=== PATIENT | male | born 1960 | race Caucasian/White ===

== ENCOUNTER 2016-11-01 11:17 | Inpatient (IN) | payer OTHER ==
[~2016-11-01] VITALS: Ht 175.3 cm; Wt 117.4 kg
[~2016-11-01 11:17] MED LIST: ASPIRIN EC325 MG PO; ASPIRIN325 MG PO; ATARAX,VISTARIL50 MG PO; ATORVASTATIN CA40 MG PO; FENOFIBRATE160 M1 PO; FLOMAX0.4 MG PO; FLONASE16 G1 BOTH NARES; GLUCOPHAGE1000 MG; GLUCOPHAGE1000 MG PO; HUMULIN R100 UNITS/ SC; HYDROXYZINE PAM50 MG PO; LAMISIL250 MG PO; LISINOPRIL10 MG PO; LITHIUM CARBON300 M1 PO; LITHIUM CARBON300 M2 PO; LITHIUM CARBON300 MG PO; LITHIUM CARBON600 MG PO; LITHOBID300 MG PO; LOPRESSOR25 MG PO; MECLIZINE HCL25 MG PO; METFORMIN HCL1000 M1 PO; METFORMIN HCL1000 MG PO; MOTRIN400 MG PO; NABUMETONE500 MG PO; NAPROSYN500 MG PO; NORCO 5/3251 TABLET PO; NOVOLIN N100 UNITS/ SC; NOVOLIN,HU100 UNITS1 SC; NOVOLOG PE100 UNITS/ SC; OMEPRAZOLE40 M1 PO; PERCOCET 10/1 TABLET PO; PROVENTIL HFA6.7 GM IH; RISPERDAL4 MG PO; ROBAXIN750 MG PO; TRAMADOL HCL50 MG PO; TRAZODONE HCL100 MG PO; TRICOR PO; TRICOR145 MG PO; TRILEPTAL300 MG PO; ULTRAM50 MG PO; WELLBUTRIN SR150 MG PO
[2016-11-01 13:52] LABS: EOSINOPHIL (%) 0 % (0-5); HEMATOCRIT 32.8 % (38.0-50.0); IMMATURE GRANULOCYTE (%) 0.6 % (0.0-0.7); INSTRUMENT ABS NEUTROPHIL CT 4.1 K/uL; LYMPHOCYTE COUNT 0.8 K/uL (1.0-2.8); MCH 30.2 PG (29.0-34.0); MCHC 32.6 G/DL (30.0-36.0); MCV 92.7 FL (86-99); MEAN PLAT.VOLUME 11.4 uM^3 (9.0-12.4); MONOCYTE (%) 4.8 % (3-12); MONOCYTE COUNT 0.3 K/uL (0-0.8); NEUTROPHIL (%) 78.9 % (45-76); NEUTROPHIL COUNT 4.1 K/uL (1.8-6.4); PLATELET COUNT 144 K/uL (156-360); RBC DIS.WIDTH-CV 15.4 % (11.8-14.6); RBC DIS.WIDTH-SD 52.6 % (39-53); RED BLOOD COUNT 3.54 M/uL (4.00-5.50); WHITE BLOOD COUNT 5.2 K/uL (4.1-10.2)
[2016-11-01 14:02] LABS: CHLORIDE 108 mEq/L (99-109); INTER. NORMALIZED RATIO 1.1; POTASSIUM 5.5 mEq/L (3.7-5.4); PROTHROMBIN TIME 11.1 (9.2-11.2); PTT 26.2 (25-32); SODIUM 135 mEq/L (136-147)
[2016-11-01 14:03] LABS: GLUCOSE 351 mg/dL (70-99)
[2016-11-01 14:05] LABS: ANION GAP 7 MEQ/L (2-14)
[2016-11-01 14:07] LABS: GFR ESTIMATE (CALCULATED) 42 mL/min/
[2016-11-01 14:08] LABS: UREA NITROGEN (BUN) 28 mg/dL (9-23)
[2016-11-01 14:15] LABS: TROP-I INTERPRETATION NEGATIVE; TROPONIN-I < 0.01 ng/mL (0.0-0.30)
[2016-11-01] MEDS ORDERED: HUMALOG100 UNIT/2 SC (15:45)
[2016-11-01] MEDS ORDERED: FUROSEMIDE20 MG PO (15:45)
[2016-11-01] MEDS ORDERED: TRESIBA FL200 UNIT/1 SC (15:46)
[2016-11-01 18:27] VITALS: BP 157/72
[2016-11-01 18:47] LABS: POINT-OF-CARE METER ID UU14162513
[2016-11-01 22:58] LABS: POINT-OF-CARE METER ID UU14162513
[2016-11-02] VITALS (7 sets, daily range): BP systolic 109–162; BP diastolic 58–74
[2016-11-02 08:07] LABS: POINT-OF-CARE METER ID UU14162513
[2016-11-02 08:14] LABS: ANION GAP 6 MEQ/L (2-14); CHLORIDE 107 MEQ/L (99-109); GFR ESTIMATE (CALCULATED) 51 mL/min/; GLUCOSE 295 mg/dL (70-99); POTASSIUM 5.2 MEQ/L (3.7-5.4); SAMPLE HEMOLYSIS CHECK 0; SAMPLE ICTERIC CHECK 0; SAMPLE LIPEMIA CHECK 0; SODIUM 135 MEQ/L (136-147); UREA NITROGEN (BUN) 27 mg/dL (9-23)
[2016-11-02 08:20] LABS: HEMATOCRIT 31.3 % (38.0-50.0); MCHC 33.2 G/DL (30.0-36.0); MCV 93.4 FL (86-99); MEAN PLAT.VOLUME 11.6 uM^3 (9.0-12.4); PLATELET COUNT 144 K/uL (156-360); RBC DIS.WIDTH-CV 15.5 % (11.8-14.6); RBC DIS.WIDTH-SD 53.1 % (39-53); RED BLOOD COUNT 3.35 M/uL (4.00-5.50); WHITE BLOOD COUNT 5.5 K/uL (4.1-10.2)
[2016-11-02 12:41] LABS: POINT-OF-CARE METER ID UU14162513
[2016-11-02 16:56] LABS: ADD MIUA? NO; BILIRUBIN NEGATIVE; BLOOD NEGATIVE; COLOR STRAW ((YELLOW)); GLUCOSE (STRIP) >=500; KETONES NEGATIVE; LEUKOCYTES NEGATIVE; NITRITE NEGATIVE; PROTEIN (STRIP) NEGATIVE; SPECIFIC GRAVITY 1.016 (1.000-1.030); UROBILINOGEN 0.2 MG/DL (0.2-1.0)
[2016-11-02 17:16] LABS: UR CREATININE CONCENTRATION 50.1 MG/DL
[2016-11-02 17:40] LABS: POINT-OF-CARE METER ID UU13113831
[2016-11-02 21:12] LABS: POINT-OF-CARE METER ID UU14162513
[2016-11-03 03:55] VITALS: BP 153/57
[2016-11-03 06:09] LABS: EOSINOPHIL (%) 0 % (0-5); HEMATOCRIT 30.2 % (38.0-50.0); IMMATURE GRANULOCYTE (%) 0.3 % (0.0-0.7); INSTRUMENT ABS NEUTROPHIL CT 4.8 K/uL; LYMPHOCYTE COUNT 1.1 K/uL (1.0-2.8); MCH 30.5 PG (29.0-34.0); MCHC 32.8 G/DL (30.0-36.0); MCV 92.9 FL (86-99); MONOCYTE (%) 5.8 % (3-12); MONOCYTE COUNT 0.4 K/uL (0-0.8); NEUTROPHIL (%) 75.6 % (45-76); NEUTROPHIL COUNT 4.8 K/uL (1.8-6.4); PLATELET COUNT 139 K/uL (156-360); RBC DIS.WIDTH-CV 15.5 % (11.8-14.6); RBC DIS.WIDTH-SD 53.1 % (39-53); RED BLOOD COUNT 3.25 M/uL (4.00-5.50); WHITE BLOOD COUNT 6.3 K/uL (4.1-10.2)
[2016-11-03 06:17] LABS: ANION GAP 5 MEQ/L (2-14); CHLORIDE 107 MEQ/L (99-109); GFR ESTIMATE (CALCULATED) 56 mL/min/; GLUCOSE 200 mg/dL (70-99); MAGNESIUM 1.7 mg/dl (1.3-2.7); POTASSIUM 5.1 MEQ/L (3.7-5.4); SAMPLE HEMOLYSIS CHECK 0; SAMPLE ICTERIC CHECK 0; SAMPLE LIPEMIA CHECK 0; SODIUM 134 MEQ/L (136-147); UREA NITROGEN (BUN) 26 mg/dL (9-23); URIC ACID 7.1 mg/dL (3.1-9.2)
[2016-11-03 07:45] VITALS: BP 115/56
[2016-11-03] MEDS ORDERED: ATORVASTATIN CA40 MG PO (08:53)
[2016-11-03] MEDS ORDERED: ASPIRIN EC325 MG PO (08:54)
[2016-11-03] MEDS ORDERED: HUMALOG100 UNIT/2 SC (08:56)
== END 2016-11-03 12:20 | disposition home or self-care (01) | DRG 69 ==
LOC: EME 11:17 → EDOF 15:06 → 5WEST 15:06
PROVIDERS: Emergency Medicine; Hospitalist; Internal Medicine Nephrology
DX: G45.8 Other transient cerebral ischemic attacks and related syndromes (principal); N17.9 Acute kidney failure, unspecified; E11.22 Type 2 diabetes mellitus with diabetic chronic kidney disease; N18.3 Chronic kidney disease, stage 3 (moderate); E11.65 Type 2 diabetes mellitus with hyperglycemia; R47.81 Slurred speech; F31.9 Bipolar disorder, unspecified; I12.9 Hypertensive chronic kidney disease with stage 1 through stage 4 chronic kidney disease, or unspecified chronic kidney disease; E78.5 Hyperlipidemia, unspecified; Z79.4 Long term (current) use of insulin; J45.909 Unspecified asthma, uncomplicated; D64.9 Anemia, unspecified; E87.5 Hyperkalemia; Z86.73 Personal history of transient ischemic attack (TIA), and cerebral infarction without residual deficits; E66.9 Obesity, unspecified; Z68.38 Body mass index [BMI] 38.0-38.9, adult; G56.03 Carpal tunnel syndrome, bilateral upper limbs; R42 Dizziness and giddiness; R11.2 Nausea with vomiting, unspecified; R26.81 Unsteadiness on feet; G47.33 Obstructive sleep apnea (adult) (pediatric); G89.29 Other chronic pain; M54.5 Low back pain; Z79.84 Long term (current) use of oral hypoglycemic drugs; T39.395A Adverse effect of other nonsteroidal anti-inflammatory drugs [NSAID], initial encounter; T50.995A Adverse effect of other drugs, medicaments and biological substances, initial encounter
CPT/HCPCS: 70450; 70551; 71010; 76770; 80048; 81003; 82570; 82948; 83735; 84100; 84132 91; 84156; 84484; 84550; 85025; 85027; 85610; 85730; 93005; 93880; 99281; 99285; G0378; J1644; J1815

== ENCOUNTER 2016-11-26 09:07 | Emergency (ER) | payer OTHER ==
[~2016-11-26] VITALS: Ht 172.7 cm; Wt 113.0 kg
[~2016-11-26 09:07] MED LIST changes: +FUROSEMIDE20 MG PO; +HUMALOG100 UNIT/2 SC; +TRESIBA FL200 UNIT/1 SC
[2016-11-26 10:55] LABS: CHLORIDE 111 mEq/L (99-109); POTASSIUM 4.5 mEq/L (3.7-5.4); SODIUM 136 mEq/L (136-147)
[2016-11-26 10:56] LABS: MAGNESIUM 2.3 mg/dL (1.3-2.7)
[2016-11-26 10:58] LABS: GLUCOSE 145 mg/dL (70-99)
[2016-11-26 10:59] LABS: ANION GAP 6 MEQ/L (2-14)
[2016-11-26 11:00] LABS: TOTAL BILIRUBIN 0.2 mg/dL (0.0-1.0)
[2016-11-26 11:01] LABS: ALKALINE PHOSPHATASE 72 IU/L (3-129); EOSINOPHIL (%) 0 % (0-5); HEMATOCRIT 30.7 % (38.0-50.0); IMMATURE GRANULOCYTE (%) 0.2 % (0.0-0.7); INSTRUMENT ABS NEUTROPHIL CT 3.4 K/uL; LYMPHOCYTE COUNT 0.8 K/uL (1.0-2.8); MCH 31.5 PG (29.0-34.0); MCHC 32.9 G/DL (30.0-36.0); MCV 95.6 FL (86-99); MEAN PLAT.VOLUME 12.3 uM^3 (9.0-12.4); MONOCYTE (%) 6.4 % (3-12); MONOCYTE COUNT 0.3 K/uL (0-0.8); NEUTROPHIL (%) 75.2 % (45-76); NEUTROPHIL COUNT 3.4 K/uL (1.8-6.4); PLATELET COUNT 156 K/uL (156-360); RBC DIS.WIDTH-SD 57.1 % (39-53); RED BLOOD COUNT 3.21 M/uL (4.00-5.50); SERUM ETHYL ALCOHOL < 10 mg/dL; WHITE BLOOD COUNT 4.5 K/uL (4.1-10.2)
[2016-11-26 11:02] LABS: GFR ESTIMATE (CALCULATED) 42 mL/min/
[2016-11-26 11:03] LABS: UREA NITROGEN (BUN) 30 mg/dL (9-23)
[2016-11-26 11:09] LABS: TROP-I INTERPRETATION NEGATIVE; TROPONIN-I < 0.01 ng/mL (0.0-0.30)
[2016-11-26 13:00] VITALS: BP 126/65
[2016-11-26 13:40] LABS: AMPHETAMINE NEGATIVE (500 ng/mL); BARBITURATES NEGATIVE (200 ng/mL); BENZODIAZEPINES NEGATIVE (150 ng/mL); COCAINE NEGATIVE (150 ng/mL); INTERNAL CONTROLS VALID? YES; METHADONE NEGATIVE (200 ng/mL); METHAMPHETAMINE NEGATIVE (500 ng/mL); OPIATES (MORPHINE) NEGATIVE (100 ng/mL); OXYCODONE NEGATIVE (100 ng/mL); PHENCYCLIDINE NEGATIVE (25 ng/mL); PROPOXYPHENE NEGATIVE (300 ng/mL); THC CANNABINOIDS NEGATIVE (50 ng/mL); TRICYCLIC ANTIDEPRESSANTS NEGATIVE (300 ng/mL)
[2016-11-26 13:44] LABS: ADD MIUA? YES; BILIRUBIN NEGATIVE; BLOOD NEGATIVE; COLOR AMBER ((YELLOW)); GLUCOSE (STRIP) 50; KETONES NEGATIVE; LEUKOCYTES NEGATIVE; NITRITE NEGATIVE; PROTEIN (STRIP) NEGATIVE; SPECIFIC GRAVITY 1.016 (1.000-1.030); UROBILINOGEN 0.2 MG/DL (0.2-1.0)
[2016-11-26 14:06] LABS: BACTERIA NONE SEEN /HPF; EPITHELIAL CELLS RARE /HPF; HYALINE CASTS 0-5 /LPF; MUCUS TRACE /LPF; RED BLOOD CELLS 0-5 /HPF (0-5); WHITE BLOOD CELLS 0-5 /HPF (0-5)
== END 2016-11-26 14:37 | disposition home or self-care (01) ==
LOC: EME 09:07
PROVIDERS: Emergency Medicine
DX: R53.1 Weakness (principal); E86.0 Dehydration; I10 Essential (primary) hypertension; E78.5 Hyperlipidemia, unspecified; Z86.73 Personal history of transient ischemic attack (TIA), and cerebral infarction without residual deficits; Z87.442 Personal history of urinary calculi; Z88.1 Allergy status to other antibiotic agents
CPT/HCPCS: 70450; 80053; 81003; 83605; 83735; 84484; 85025; 93005; 99281; 99285; G0480; J7030

== ENCOUNTER 2016-12-21 16:57 | Emergency (ER) | payer OTHER ==
[~2016-12-21] VITALS: Ht 175.3 cm; Wt 117.3 kg
[2016-12-21 17:44] LABS: CARBON DIOXIDE (BICARBONATE) 25.9 MEQ/L (20-31)
[2016-12-21 17:46] LABS: HEMATOCRIT 29.3 % (38.0-50.0); MCH 31.3 PG (29.0-34.0); MCHC 33.4 G/DL (30.0-36.0); MCV 93.6 FL (86-99); MEAN PLAT.VOLUME 11.6 uM^3 (9.0-12.4); PLATELET COUNT 129 K/uL (156-360); RBC DIS.WIDTH-CV 16.1 % (11.8-14.6); RBC DIS.WIDTH-SD 54.6 % (39-53); RED BLOOD COUNT 3.13 M/uL (4.00-5.50); WHITE BLOOD COUNT 4.6 K/uL (4.1-10.2)
[2016-12-21 17:56] LABS: CHLORIDE 106 mEq/L (99-109); POTASSIUM 4.8 mEq/L (3.7-5.4); SODIUM 132 mEq/L (136-147)
[2016-12-21 18:00] LABS: ANION GAP 7 MEQ/L (2-14)
[2016-12-21 18:01] LABS: TOTAL BILIRUBIN 0.3 mg/dL (0.0-1.0)
[2016-12-21 18:02] LABS: ALKALINE PHOSPHATASE 103 IU/L (3-129); GFR ESTIMATE (CALCULATED) 48 mL/min/
[2016-12-21 18:03] LABS: UREA NITROGEN (BUN) 22 mg/dL (9-23)
[2016-12-21 18:05] LABS: GLUCOSE 416 mg/dL (70-99)
[2016-12-21 18:42] LABS: ADD MIUA? NO; BILIRUBIN NEGATIVE; BLOOD NEGATIVE; COLOR STRAW ((YELLOW)); GLUCOSE (STRIP) >=500; KETONES NEGATIVE; LEUKOCYTES NEGATIVE; NITRITE NEGATIVE; PROTEIN (STRIP) NEGATIVE; SPECIFIC GRAVITY 1.015 (1.000-1.030); UCUL ADDED? NO; UROBILINOGEN 0.2 MG/DL (0.2-1.0)
[2016-12-21 19:59] LABS: POINT-OF-CARE METER ID UU13113702
[2016-12-21 21:03] LABS: POINT-OF-CARE METER ID UU13113702; POINT-OF-CARE USER ID NUTMMM10
[2016-12-21 21:17] VITALS: BP 160/81
[2016-12-22 10:57] LABS: POINT-OF-CARE METER ID UU13113702
== END 2016-12-21 21:20 | disposition home or self-care (01) ==
LOC: EME 16:57
PROVIDERS: Emergency Medicine
DX: E11.65 Type 2 diabetes mellitus with hyperglycemia (principal); T38.3X6A Underdosing of insulin and oral hypoglycemic [antidiabetic] drugs, initial encounter; Z91.128 Patient's intentional underdosing of medication regimen for other reason; E78.5 Hyperlipidemia, unspecified; I10 Essential (primary) hypertension; Z86.73 Personal history of transient ischemic attack (TIA), and cerebral infarction without residual deficits; Z79.4 Long term (current) use of insulin; Z87.442 Personal history of urinary calculi
CPT/HCPCS: 71020; 80053; 81003; 82010; 82803; 82948; 85027; 99281; 99285; J7030

== ENCOUNTER 2016-12-26 06:59 | Emergency (ER) | payer OTHER ==
[~2016-12-26] VITALS: Ht 175.3 cm; Wt 117.2 kg
[2016-12-26 07:39] LABS: MCH 30.7 PG (29.0-34.0); MCHC 32.4 G/DL (30.0-36.0); MCV 94.6 FL (86-99); MEAN PLAT.VOLUME 12.3 uM^3 (9.0-12.4); PLATELET COUNT 131 K/uL (156-360); RBC DIS.WIDTH-CV 16.6 % (11.8-14.6); RED BLOOD COUNT 3.49 M/uL (4.00-5.50); WHITE BLOOD COUNT 5.4 K/uL (4.1-10.2)
[2016-12-26 07:50] LABS: CHLORIDE 105 mEq/L (99-109); POTASSIUM 4.2 mEq/L (3.7-5.4); SODIUM 133 mEq/L (136-147)
[2016-12-26 07:53] LABS: ANION GAP 10 MEQ/L (2-14)
[2016-12-26 07:55] LABS: GFR ESTIMATE (CALCULATED) 48 mL/min/; GLUCOSE 450 mg/dL (70-99)
[2016-12-26 07:56] LABS: UREA NITROGEN (BUN) 18 mg/dL (9-23)
[2016-12-26 09:27] LABS: ADD MIUA? NO; BILIRUBIN NEGATIVE; BLOOD NEGATIVE; COLOR STRAW ((YELLOW)); GLUCOSE (STRIP) >=500; KETONES NEGATIVE; LEUKOCYTES NEGATIVE; NITRITE NEGATIVE; PROTEIN (STRIP) NEGATIVE; SPECIFIC GRAVITY 1.012 (1.000-1.030); UCUL ADDED? NO; UROBILINOGEN 0.2 MG/DL (0.2-1.0)
[2016-12-26 09:36] LABS: POINT-OF-CARE METER ID UU14100415
[2016-12-26 10:25] LABS: POINT-OF-CARE METER ID UU14100415
[2016-12-26 10:50] VITALS: BP 133/62
[2016-12-27 10:58] LABS: POINT-OF-CARE METER ID UU14100415
== END 2016-12-26 10:51 | disposition home or self-care (01) ==
LOC: EME 06:59
PROVIDERS: Emergency Medicine
DX: E11.65 Type 2 diabetes mellitus with hyperglycemia (principal); I12.9 Hypertensive chronic kidney disease with stage 1 through stage 4 chronic kidney disease, or unspecified chronic kidney disease; N18.9 Chronic kidney disease, unspecified; E11.22 Type 2 diabetes mellitus with diabetic chronic kidney disease; Z79.4 Long term (current) use of insulin; J45.909 Unspecified asthma, uncomplicated; K21.9 Gastro-esophageal reflux disease without esophagitis; E78.5 Hyperlipidemia, unspecified; Z86.73 Personal history of transient ischemic attack (TIA), and cerebral infarction without residual deficits; E66.9 Obesity, unspecified; Z68.38 Body mass index [BMI] 38.0-38.9, adult
CPT/HCPCS: 80048; 81003; 82948; 85027; 99281; 99285; J7030

== ENCOUNTER 2017-03-29 18:26 | Emergency (ER) | payer OTHER ==
[~2017-03-29] VITALS: Ht 172.7 cm; Wt 115.3 kg
[2017-03-29 18:59] LABS: HEMATOCRIT 32.8 % (38.0-50.0); MCH 28.2 PG (29.0-34.0); MCHC 32.9 G/DL (30.0-36.0); MCV 85.6 FL (86-99); MEAN PLAT.VOLUME 12.6 uM^3 (9.0-12.4); PLATELET COUNT 106 K/uL (156-360); RBC DIS.WIDTH-CV 16.1 % (11.8-14.6); RED BLOOD COUNT 3.83 M/uL (4.00-5.50); WHITE BLOOD COUNT 5.2 K/uL (4.1-10.2)
[2017-03-29 19:12] LABS: CHLORIDE 95 mEq/L (99-109); POTASSIUM 4.4 mEq/L (3.7-5.4); SODIUM 132 mEq/L (136-147)
[2017-03-29 19:15] LABS: ANION GAP 13 MEQ/L (2-14)
[2017-03-29 19:16] LABS: TOTAL BILIRUBIN 0.3 mg/dL (0.0-1.0)
[2017-03-29 19:17] LABS: ALKALINE PHOSPHATASE 103 IU/L (3-129)
[2017-03-29 19:18] LABS: GFR ESTIMATE (CALCULATED) 51 mL/min/
[2017-03-29 19:19] LABS: UREA NITROGEN (BUN) 21 mg/dL (9-23)
[2017-03-29 19:27] LABS: GLUCOSE 598 mg/dL (70-99)
[2017-03-29 20:00] LABS: ADD MIUA? YES; BILIRUBIN NEGATIVE; BLOOD SMALL; COLOR STRAW ((YELLOW)); GLUCOSE (STRIP) >=500; KETONES NEGATIVE; LEUKOCYTES NEGATIVE; NITRITE NEGATIVE; PROTEIN (STRIP) 30; SPECIFIC GRAVITY 1.017 (1.000-1.030); UROBILINOGEN 0.2 MG/DL (0.2-1.0)
[2017-03-29 20:04] LABS: BACTERIA NONE SEEN /HPF; EPITHELIAL CELLS NONE SEEN /HPF; MUCUS NONE SEEN /LPF; RED BLOOD CELLS 0-5 /HPF (0-5); UCUL ADDED? NO; WHITE BLOOD CELLS 0-5 /HPF (0-5)
[2017-03-29 23:16] LABS: POINT-OF-CARE METER ID UU14100415
[2017-03-29 23:27] VITALS: BP 186/87
[2017-03-30 07:36] LABS: POINT-OF-CARE METER ID UU14100415
[2017-03-30 07:36] LABS: POINT-OF-CARE METER ID UU13113778
== END 2017-03-29 23:28 | disposition home or self-care (01) ==
LOC: EME 18:26
PROVIDERS: Emergency Medicine
DX: E11.65 Type 2 diabetes mellitus with hyperglycemia (principal); Z79.4 Long term (current) use of insulin; E78.5 Hyperlipidemia, unspecified; I10 Essential (primary) hypertension; Z87.442 Personal history of urinary calculi; Z86.73 Personal history of transient ischemic attack (TIA), and cerebral infarction without residual deficits
CPT/HCPCS: 80053; 81003; 82948; 85027; 99281; 99285; J7030

== ENCOUNTER 2017-09-23 15:37 | Emergency (ER) | payer OTHER ==
[~2017-09-23] VITALS: Ht 175.3 cm; Wt 120.4 kg
[2017-09-23 16:05] LABS: HEMATOCRIT 31.2 % (38.0-50.0); HEMOGLOBIN 10.2 G/DL (12.5-16.6); MCH 28.4 PG (29.0-34.0); MCHC 32.7 G/DL (30.0-36.0); MCV 86.9 FL (86-99); PLATELET COUNT 98 K/uL (156-360); RBC DIS.WIDTH-CV 15.9 % (11.8-14.6); RBC DIS.WIDTH-SD 50.6 % (39-53); RED BLOOD COUNT 3.59 M/uL (4.00-5.50); WHITE BLOOD COUNT 4.2 K/uL (4.1-10.2)
[2017-09-23 16:13] LABS: CHLORIDE 101 mEq/L (99-109); POTASSIUM 4.6 mEq/L (3.7-5.4); SODIUM 135 mEq/L (136-147)
[2017-09-23 16:15] LABS: GLUCOSE 392 mg/dL (70-99)
[2017-09-23 16:19] LABS: CREATININE 1.5 mg/dL (0.6-1.3); GFR ESTIMATE (CALCULATED) 51 mL/min/ (58.99-99999)
[2017-09-23 16:20] LABS: UREA NITROGEN (BUN) 20 mg/dL (9-23)
[2017-09-23] MEDS ORDERED: VENTOLIN HFA18 GM IH (16:57)
[2017-09-23] MEDS ORDERED: HYCODAN SYRUP480 ML PO (16:57)
[2017-09-23] MEDS ORDERED: ZITHROMAX250 MG PO (16:57)
[2017-09-23 17:17] VITALS: BP 175/86
== END 2017-09-23 17:19 | disposition home or self-care (01) ==
LOC: EME 15:37
PROVIDERS: Nurse Practitioner Family
DX: J20.9 Acute bronchitis, unspecified (principal); E10.8 Type 1 diabetes mellitus with unspecified complications; Z79.84 Long term (current) use of oral hypoglycemic drugs; Z88.1 Allergy status to other antibiotic agents
CPT/HCPCS: 71046; 80048; 85027; 94640; 99202; 99281; 99284; J1100

== ENCOUNTER 2017-10-02 13:06 | Emergency (ER) | payer OTHER ==
[~2017-10-02] VITALS: Ht 175.3 cm; Wt 120.0 kg
[~2017-10-02 13:06] MED LIST changes: +HYCODAN SYRUP480 ML PO; +VENTOLIN HFA18 GM IH; +ZITHROMAX250 MG PO
[2017-10-02 15:02] LABS: HEMATOCRIT 31.3 % (38.0-50.0); HEMOGLOBIN 10.3 G/DL (12.5-16.6); MCH 28.5 PG (29.0-34.0); MCHC 32.9 G/DL (30.0-36.0); MCV 86.5 FL (86-99); PLATELET COUNT 118 K/uL (156-360); RBC DIS.WIDTH-CV 16.4 % (11.8-14.6); RBC DIS.WIDTH-SD 51.8 % (39-53); RED BLOOD COUNT 3.62 M/uL (4.00-5.50); WHITE BLOOD COUNT 6.2 K/uL (4.1-10.2)
[2017-10-02 15:11] LABS: CHLORIDE 103 mEq/L (99-109); POTASSIUM 4.2 mEq/L (3.7-5.4); SODIUM 137 mEq/L (136-147)
[2017-10-02 15:13] LABS: GLUCOSE 65 mg/dL (70-99)
[2017-10-02 15:17] LABS: CREATININE 1.2 mg/dL (0.6-1.3); GFR ESTIMATE (CALCULATED) > 59 mL/min/ (58.99-99999)
[2017-10-02 15:18] LABS: UREA NITROGEN (BUN) 24 mg/dL (9-23)
[2017-10-02] MEDS ORDERED: LEVAQUIN750 MG PO (16:09)
[2017-10-02] MEDS ORDERED: PREDNISONE10 M1 PO (16:10)
[2017-10-02] MEDS ORDERED: PROVENTIL,2.5 MG/3 M IH (16:10)
[2017-10-02 16:31] VITALS: BP 157/71
== END 2017-10-02 16:31 | disposition home or self-care (01) ==
LOC: EME 13:06
PROVIDERS: Physician Assistant
DX: J06.9 Acute upper respiratory infection, unspecified (principal); J44.1 Chronic obstructive pulmonary disease with (acute) exacerbation; E11.9 Type 2 diabetes mellitus without complications; Z79.4 Long term (current) use of insulin; E78.5 Hyperlipidemia, unspecified; I10 Essential (primary) hypertension; F32.9 Major depressive disorder, single episode, unspecified; F41.9 Anxiety disorder, unspecified; K21.9 Gastro-esophageal reflux disease without esophagitis; Z86.73 Personal history of transient ischemic attack (TIA), and cerebral infarction without residual deficits; Z88.0 Allergy status to penicillin
CPT/HCPCS: 71046; 80048; 85027; 87502; 94640; 99281; 99284